=== PATIENT | female | born 1990 | race Caucasian/White ===

== ENCOUNTER → 2025-01-26 | Outpatient (CLI) | payer MEDICAID, SELFPAY ==
[2025-01-26 12:39] LABS: HCG Qualitative,Urine Negative
--- NOTE | 2025-01-26 15:30 | XR_ITS ---
EXAMINATION: CT chest without contrast Date and time: January 26, 2025, 1519 hours Indications: Family history of malignant neoplasm of the lung, smoking history 15 years TECHNIQUE AND FINDINGS: Multiple CT axial images of the chest, 2.0 mm slice thickness 2D sagittal and coronal reconstructions 3D reconstructions No thoracic aortic aneurysm dilatation No pulmonary artery significant enlargement No paratracheal or tracheobronchial or bronchopulmonary adenopathy No pneumonia, pulmonary edema or pleural disease or pulmonary nodules 23 mm lesion dome of the liver Contracted gallbladder No hydronephrosis Osseous structures intact IMPRESSION: No mediastinal lymphadenopathy No pneumonia, pulmonary edema, pleural disease or pulmonary nodules Recommend CT scan abdomen/pelvis post intravenous contrast follow-up to assess 23 mm lesion dome of the liver
== END | disposition home or self-care (01) ==
PROVIDERS: Referring Provider Internal Medicine Critical Care Medicine; Visit Provider Internal Medicine Critical Care Medicine
DX: F17.200 Nicotine dependence, unspecified, uncomplicated (principal); Z80.1 Family history of malignant neoplasm of trachea, bronchus and lung; Z32.00 Encounter for pregnancy test, result unknown
CPT/HCPCS: 71250; 81025

== ENCOUNTER → 2025-02-16 | Outpatient (CLI) | payer MEDICAID, SELFPAY ==
--- NOTE | 2025-02-16 12:49 | XR_ITS ---
Examination: CT abdomen with intravenous contrast CT pelvis with intravenous contrast 2-D coronal reconstructions 2-D sagittal reconstructions Date and time of exam: February 16 0 25, 1448 hours INDICATIONS: 23 mm lesion dome of the liver on CT chest study January 26, 2025 CTDI: vol (mGy) 11.8 DLP: (mGycm) 707 Technique: Multiple axial sections of the abdomen and pelvis have been obtained. 64 slice high-resolution scanner used. 3 mm axial sections have been obtained, post intravenous injection 60 cc Isovue 370 2-D sagittal, coronal reconstructions obtained. Low dose protocols were performed. One or more of the following dose reduction techniques were used; automated exposure control, adjustment of the mA and/or KV according to patient size, use of iterative reconstruction technique. Findings: 26 mm lesion dome of the liver on the right with peripheral nodular enhancement characteristic for hemangioma Spleen not enlarged No gallstones No pancreatic or adrenal mass Aorta normal size Small fat-containing umbilical hernia Normal appendix No bowel obstruction 14 mm involuting left ovarian follicular cyst Urinary bladder intact The Venancio structures are intact IMPRESSION: 26 mm lesion dome of the liver on the right with peripheral nodular enhancement, characteristic for hemangioma, recommend 6-month hepatic sonography follow-up
[2025-02-16 13:20] LABS: HCG Qualitative,Urine Negative
== END | disposition home or self-care (01) ==
PROVIDERS: PCP Registered Nurse Community Health; Referring Provider Registered Nurse Community Health; Visit Provider Registered Nurse Community Health
DX: K76.9 Liver disease, unspecified (principal); R91.1 Solitary pulmonary nodule; Z32.00 Encounter for pregnancy test, result unknown
CPT/HCPCS: 74177; 81025; A4649; Q9967